=== PATIENT | female | born 1960 | race Caucasian/White ===

== ENCOUNTER → 2024-07-01 17:05 | Outpatient (REF) | payer OTHER, SELFPAY | LOC: WDC 17:05 | PROVIDERS: ATTENDING PHYSICIAN Physician Assistant Medical | DX: Z12.31 Encounter for screening mammogram for malignant neoplasm of breast (principal) | CPT/HCPCS: 77063; 77067 ==

== ENCOUNTER 2024-09-29 08:23 | Emergency (ER) | payer OTHER, SELFPAY ==
[2024-09-29 08:35] VITALS: BP 148/97
--- NOTE | 2024-09-29 09:09 | ED.GENMED ---
History of Present Illness
<Demetrius Coyle MD - Last Filed: 09/29/24 14:31>
General
Chief Complaint: Head Injury
Source: patient
Exam Limitations: none
Time Seen by Provider: 09/29/24 08:54
Nursing documentation reviewed up to this point in time: agreed with
History of Present Illness
History of Present Illness:
Patient presents to ED after trip and fall last night at home, where she fell forward onto hardwood floor. Denies loss of consciousness. Denies headache. Denies dizziness. Denies nausea or vomiting. Denies blurry vision. Denies loss of
sensation or weakness. Patient was able to get up on her own and was able to control bleeding after showering with pressure. However, when she woke up this morning, her spouse recommended an evaluation, due to size of the laceration. Patient does
not take any blood thinning medication. Patient's vaccination status, including tetanus vaccination, is up-to-date.
Past History
<Demetrius Coyle MD - Last Filed: 09/29/24 14:31>
Past History
ED Past Medical History: None; Negative Asthma, HTN, Hypercholesterolemia or NIDDM
ED Past Surgical History: (Twice)
Social History
Tobacco: Non-smoker
Alcohol: Occasional
Personal:
Living: with family
Review of Systems
<Demetrius Coyle MD - Last Filed: 09/29/24 14:31>
Review of Systems
Allergies reviewed?: Yes
All Other Systems: ROS reviewed and negative except as documented in HPI and ROS
Constitutional: Reports no symptoms
Musculoskeletal: Reports no symptoms
Skin: Reports other (eyebrow laceration)
Neurological: Reports no symptoms; Denies dizzy, headache or weakness
Phy Exam
<Demetrius Coyle MD - Last Filed: 09/29/24 14:31>
Physical Exam
Physical Exam:
Physical Exam
General: no apparent distress, not acutely ill. afebrile
Head: an approx 1cm superficial laceration over left eyebrow with abrasion. no active bleeding
Neck: supple. normal range of motion.
Heart: s1/s2 regular rate and rhythm, no murmur. equal radial pulses.
Lungs: no acute respiratory distress. clear bilaterally
Abdomen: normal bowel sounds. not tender.
Neuro: alert and oriented. no focal neurological deficits
Skin: no rash
Psychiatric: well kept. interactive and cooperative
Extremities: no edema. no calf tenderness.
Course
<Demetrius Coyle MD - Last Filed: 09/29/24 14:31>
Vital Signs
Initial and Last Documented VS:
Initial Vital Signs
Temp Pulse Resp BP Pulse Ox
98.2 F 89 18 148/97 99
09/29/24 08:35 09/29/24 08:35 09/29/24 08:35 09/29/24 08:35 09/29/24 08:35
Last Documented Vital Signs
Temp Pulse Resp BP Pulse Ox
98.2 F 89 18 148/97 93
09/29/24 08:35 09/29/24 08:35 09/29/24 08:35 09/29/24 08:35 09/29/24 09:16
<Bryant Carey PA-C - Last Filed: 09/29/24 10:26>
Vital Signs
Initial and Last Documented VS:
Initial Vital Signs
Temp Pulse Resp BP Pulse Ox
98.2 F 89 18 148/97 99
09/29/24 08:35 09/29/24 08:35 09/29/24 08:35 09/29/24 08:35 09/29/24 08:35
Last Documented Vital Signs
Temp Pulse Resp BP Pulse Ox
98.2 F 89 18 148/97 93
09/29/24 08:35 09/29/24 08:35 09/29/24 08:35 09/29/24 08:35 09/29/24 09:16
Procedures
<Bryant Carey PA-C - Last Filed: 09/29/24 10:26>
Laceration Closure
Left Lateral Eye brow:
Status of Wound: clean
Description of Wound Edges: sharp and surrounded by abrasion
Preparation: cleaned with saline
Anesthesia: 1% Lidocaine
Revision/Debridement: routine- no revision and irrigate-direct pressure
Wound exploration: explored to base- no FB
Type of Closure: single layer closure and interrupted sutures
Skin Closure Material: 6-0 vicryl
Number of sutures: 3
<Demetrius Coyle MD - Last Filed: 09/29/24 14:31>
MDM/Problems Addressed
MDM/Problems Addressed:
Wound well approximated. Advised PCP f/u for re-evaluation, with concern for infection, as wound is opted to be closed after 12hrs. Pt expresses understanding at time of discharge, to the care of her spouse.
<Bryant Carey PA-C - Last Filed: 09/29/24 10:26>
*Critical Care Note
Total Time (30-74mins, 75-104mins- exclusive of procedures): Not Applicable
<Bryant Carey PA-C - Last Filed: 09/29/24 10:26>
Update Note
Update Note:
I assumed care of patient for wound closure. The wound was copiously irrigated with saline anesthetized 1% lidocaine with epinephrine and closed with 6-0 Vicryl sutures in a simple erupted fashion. Antibacterial been applied. Stable for discharge
ED Attending Note
<Demetrius Coyle MD - Last Filed: 09/29/24 14:31>
-
Portions of this chart may have been created with voice recognition software.� Occasional wrong word or��sound alike� substitutions may have occurred due to the inherent limitations of voice recognition software.
Discharge Plan
Departure
Patient Disposition: Home (Routine Discharge)
Date of Disposition: 09/29/24
Time of Disposition: 10:25
Patient with high blood pressure during this ER visit?: No
Discharge Problem:
Laceration
Instructions: Laceration Repair With Stitches (DC)
Prescriptions:
No Action
No Meds [No Current Medications]
0
sulfamethoxazole-trimethoprim 1 TABLET tablet
1 tab PO BID Qty: 14 0RF
Referrals:
Hawa Mckinney PA-C [Family Provider] -
Activity Restrictions/Additional Instructions:
Apply antibacterial Bridger daily. You may use ibuprofen or Tylenol. Ice for swelling. The sutures will dissolve on their own.
Interventions
Interventions:
*Risk Screen - Suicide Last Done: 09/29/24 08:35
*General Assessment Last Done: 09/29/24 08:35
*Neglect/Abuse Screening Last Done: 09/29/24 08:35
ED- Fall Risk Assessment Last Done: 09/29/24 09:15
*ED COVID-19 Vaccine History Last Done: 09/29/24 09:18
*Nursing Disposition Last Done: 09/29/24 11:00
ED- Neurological Assessment Last Done: 09/29/24 09:18
ED-Skin Assessment Last Done: 09/29/24 09:19
Discharge Date and Time
Discharge Date/Time: 09/29/24 11:00
Print Language: SENEGALESE
[2024-09-29 09:18] VITALS: BMI 24.6
== END 2024-09-29 11:00 | disposition home or self-care (01) ==
LOC: EMR 08:23
PROVIDERS: EMERGENCY PHYSICIAN Emergency Medicine; FAMILY PHYSICIAN Physician Assistant Medical
DX: S01.112A Laceration without foreign body of left eyelid and periocular area, initial encounter (principal); W01.0XXA Fall on same level from slipping, tripping and stumbling without subsequent striking against object, initial encounter
CPT/HCPCS: 12011; 99282

== ENCOUNTER → 2025-07-23 17:03 | Outpatient (REF) | payer OTHER, SELFPAY | LOC: WDC 17:03 | PROVIDERS: ATTENDING PHYSICIAN Physician Assistant Medical | DX: Z12.31 Encounter for screening mammogram for malignant neoplasm of breast (principal) | CPT/HCPCS: 77063; 77067 ==